=== PATIENT | male | born 1985 | race Caucasian/White ===

== ENCOUNTER 2022-12-05 23:41 | Emergency (ER) | payer SELFPAY ==
[~2022-12-05] VITALS: Ht 170.2 cm; Wt 69.0 kg
[2022-12-06 00:01] VITALS: BP 158/90
== END 2022-12-06 00:12 ==
LOC: ER 23:41
DX: F10.129 Alcohol abuse with intoxication, unspecified (principal); F15.988 Other stimulant use, unspecified with other stimulant-induced disorder; R11.2 Nausea with vomiting, unspecified; F91.8 Other conduct disorders; Y90.9 Presence of alcohol in blood, level not specified
CPT/HCPCS: 99283

== ENCOUNTER 2023-05-31 17:06 | Emergency (ER) | payer SELFPAY ==
[~2023-05-31] VITALS: Ht 175.3 cm; Wt 73.0 kg
[2023-05-31 17:11] VITALS: BP 121/85; PULSE 114; RESP 16; TEMP 98.8; O2SAT 99
== END 2023-05-31 22:14 | disposition left against medical advice (07) ==
LOC: ER 18:25
DX: Z53.21 Procedure and treatment not carried out due to patient leaving prior to being seen by health care provider (principal)
CPT/HCPCS: 99281